=== PATIENT | female | born 1965 | race Caucasian/White ===

== ENCOUNTER 2020-02-02 19:55 | Emergency (ER) | payer BC ==
[~2020-02-02] VITALS: Ht 172.7 cm; Wt 88.5 kg
[2020-02-02] MEDS ORDERED: LISINOPRIL-HCT1 EACH PO (20:13)
[2020-02-02] MEDS ORDERED: BUPROPION XL300 MG PO (20:13)
[2020-02-02] MEDS ORDERED: ATIVAN1 M1 PO (20:13)
[2020-02-02] MEDS ORDERED: PROAIR HFA8.5 GM INH (20:13)
[2020-02-02] MEDS ORDERED: GABAPENTIN600 M1 PO (20:14)
[2020-02-02] MEDS ORDERED: HYDROCODON-ACE1 EAC7 PO (21:07)
[2020-02-02 21:20] VITALS: BP 125/66
== END 2020-02-02 21:21 | disposition home or self-care (01) ==
LOC: M.ERS 19:55
DX: S42.292A Other displaced fracture of upper end of left humerus, initial encounter for closed fracture (principal); J44.9 Chronic obstructive pulmonary disease, unspecified; Z79.899 Other long term (current) drug therapy; Z88.6 Allergy status to analgesic agent; W01.0XXA Fall on same level from slipping, tripping and stumbling without subsequent striking against object, initial encounter; Y93.89 Activity, other specified; Y92.89 Other specified places as the place of occurrence of the external cause; Y99.8 Other external cause status

== ENCOUNTER 2020-04-21 22:30 | Emergency (ER) | payer BC ==
[~2020-04-21] VITALS: Ht 172.7 cm; Wt 113.4 kg
[~2020-04-21 22:30] MED LIST: ATIVAN1 M1 PO; BUPROPION XL300 MG PO; GABAPENTIN600 M1 PO; HYDROCODON-ACE1 EAC7 PO; LISINOPRIL-HCT1 EACH PO; PROAIR HFA8.5 GM INH
[2020-04-21 23:25] LABS: HEMATOCRIT 44.8 % (37.0-47.0); HEMOGLOBIN 15.6 gm/dL (12.0-15.0); MCH 35.1 pg (26.0-34.0); MCHC 34.8 g/dL (28.0-37.0); MCV 100.9 fL (80.0-100.0); MPV 6.5 fl. (7.2-11.1); RBC 4.43 mil/uL (4.20-5.00); RDW-CV 14.2 % (10.5-14.5); WBC 5.4 thou/uL (4.0-11.0)
[2020-04-21 23:35] LABS: CALCIUM 8.6 mg/dL (8.5-10.1); CREATININE 0.5 mg/dL (0.6-1.3)
[2020-04-21 23:36] LABS: POTASSIUM 2.9 mmol/L (3.5-5.1)
[2020-04-21 23:40] LABS: ALBUMIN 3.4 g/dL (3.4-5.0); TOTAL BILIRUBIN 0.2 mg/dL (<0.1-1.0); TOTAL PROTEIN 7.3 g/dL (6.4-8.2)
[2020-04-21 23:52] LABS: ALCOHOL 234 mg/dL (<10); SALICYLATE 7.2 mg/dL (2.8-20.0)
[2020-04-21 23:57] LABS: ACETAMINOPHEN < 2 ug/mL (10-30)
[2020-04-22 01:02] LABS: URINE BILIRUBIN NEGATIVE (Negative); URINE BLOOD 1+ (Negative); URINE CLARITY CLEAR; URINE COLOR YELLOW; URINE GLUCOSE-RANDOM NEGATIVE (Negative); URINE KETONES NEGATIVE (Negative); URINE LEUKOCYTES NEGATIVE (Negative); URINE NITRITE NEGATIVE (Negative); URINE PROTEIN 2+ (Negative); URINE SPECIFIC GRAVITY >= 1.030 (1.005-1.030); URINE UROBILINOGEN 0.2 E.U./dl (0.2-1.0)
[2020-04-22 01:03] LABS: AMP/METHAMP Negative (Negative); BARBITURATES Negative (Negative); BENZODIAZEPINES Negative (Negative); COCAINE Negative (Negative); METHADONE Negative (Negative); OPIATES Negative (Negative); PCP Negative (Negative); THC Negative (Negative)
[2020-04-22 01:37] LABS: SQUAMOUS 4-10 Moderate /LPF (0-3)
[2020-04-22 01:38] LABS: BACTERIA 1-9 Few /HPF (None Seen); CASTS None Seen /LPF (None Seen); URINE RBC None Seen /HPF (0-2); URINE WBC 0-5 Rare /HPF (0-5)
[2020-04-22 01:39] LABS: CRYSTALS None Seen /LPF (None Seen)
[2020-04-22 05:28] VITALS: BP 150/82
== END 2020-04-22 05:28 | disposition home or self-care (01) ==
LOC: M.ERS 22:30
PROVIDERS: Personal Emergency Response Attendant
DX: F10.129 Alcohol abuse with intoxication, unspecified (principal); Y90.7 Blood alcohol level of 200-239 mg/100 ml; F32.9 Major depressive disorder, single episode, unspecified; Z20.828 Contact with and (suspected) exposure to other viral communicable diseases; J44.9 Chronic obstructive pulmonary disease, unspecified; F41.9 Anxiety disorder, unspecified; F17.210 Nicotine dependence, cigarettes, uncomplicated; Z88.5 Allergy status to narcotic agent; Z79.899 Other long term (current) drug therapy